=== PATIENT | female | born 1960 | race Hispanic/Latino ===

== ENCOUNTER → 2018-09-17 | Outpatient (CLI) | payer OTHER | END | disposition home or self-care (01) | LOC: RAH 14:33 | PROVIDERS: ATTEND Nurse Practitioner Adult Health | DX: Z12.31 Encounter for screening mammogram for malignant neoplasm of breast (principal) | CPT/HCPCS: 77067 ==

== ENCOUNTER 2019-05-20 22:26 | Emergency (ER) | payer OTHER ==
[2019-05-20] MEDS ORDERED: DEXAMETHASONE SOD PHOSPHATE 10MG/ML 1ML VIAL ONE (23:12)
[2019-05-20] MEDS ORDERED: KETOROLAC TROMETHAMINE 60 MG/2 ML VIAL ONE (23:12)
[2019-05-20] MEDS ORDERED: SULFAMETHOX-TMP DS 800/160 TAB ONE (23:12)
== END 2019-05-21 01:00 | disposition home or self-care (01) ==
LOC: EDH 22:26
DX: L02.414 Cutaneous abscess of left upper limb (principal); M54.6 Pain in thoracic spine; Z90.710 Acquired absence of both cervix and uterus; Z87.891 Personal history of nicotine dependence
CPT/HCPCS: 96372 ×2; 99284; J1100; J1885

== ENCOUNTER 2019-05-22 23:10 | Inpatient (IN) | payer OTHER | END 2019-05-31 15:09 | disposition home or self-care (01) | LOC: EDH 23:10 → EDHIP 05-23 00:40 → 4BH 05-23 06:37 | PROC: 0X9F0ZZ Drainage of Left Lower Arm, Open Approach (ICD-10-PCS; principal; 2019-05-28 18:03) | DX: A41.9 Sepsis, unspecified organism (principal); E66.9 Obesity, unspecified; L02.414 Cutaneous abscess of left upper limb; L03.114 Cellulitis of left upper limb; Z68.32 Body mass index [BMI] 32.0-32.9, adult ==

== ENCOUNTER 2019-07-27 01:18 | Emergency (ER) | payer OTHER ==
[2019-07-27] MEDS ORDERED: LIDOCAINE 5% TOPICAL PATCH TP ONE ×2 (02:05→03:19)
[2019-07-27] MEDS ORDERED: KETOROLAC TROMETHAMINE 60 MG/2 ML VIAL ONE (02:05)
== END 2019-07-27 04:21 | disposition home or self-care (01) ==
LOC: EDH 01:18
DX: M62.830 Muscle spasm of back (principal); R07.89 Other chest pain; M54.5 Low back pain; K21.9 Gastro-esophageal reflux disease without esophagitis; Z90.710 Acquired absence of both cervix and uterus
CPT/HCPCS: 71046; 96372; 99284; J1885

== ENCOUNTER → 2019-11-20 | Outpatient (CLI) | payer OTHER | END | disposition home or self-care (01) | LOC: RAH 14:28 | PROVIDERS: ATTEND Nurse Practitioner Adult Health | DX: Z12.31 Encounter for screening mammogram for malignant neoplasm of breast (principal) | CPT/HCPCS: 77067 ==

== ENCOUNTER → 2021-06-09 | Outpatient (CLI) | payer OTHER | END | disposition home or self-care (01) | LOC: RAH 09:08 | PROVIDERS: ATTEND Nurse Practitioner Adult Health | DX: Z12.31 Encounter for screening mammogram for malignant neoplasm of breast (principal) | CPT/HCPCS: 77067 ==